=== PATIENT | female | born 1960 | race Caucasian/White ===

== ENCOUNTER 2018-07-06 14:59 | Outpatient (CLI) | payer OTHER | END 2018-07-06 15:00 | disposition home or self-care (01) | LOC: BICMAMMO 14:59 | PROVIDERS: ATTEND Family Medicine | DX: Z12.31 Encounter for screening mammogram for malignant neoplasm of breast (principal); Z80.3 Family history of malignant neoplasm of breast | CPT/HCPCS: 77063; 77067 ==

== ENCOUNTER 2019-07-29 15:54 | Outpatient (CLI) | payer OTHER ==
--- NOTE | 2019-07-29 16:38 | MMO ---
Bilateral MAMMO Bilat Screen [facility]. CLINICAL HISTORY: Patient is 59 years old and is seen for screening. The patient has the following family history of breast cancer: mother, at age 53, malignant (generic). The patient has no personal history of cancer. The patient has a history of right Excisional Biopsy - benign. VIEWS: The views performed were: bilateral craniocaudal with tomosynthesis and bilateral mediolateral oblique with tomosynthesis. FILMS COMPARED: The present examination has been compared to prior imaging studies performed at [facility] on 06/09/2010, 12/19/2016, 12/22/2016 and 07/06/2018. This study has been interpreted with the assistance of computer-aided detection. MAMMOGRAM FINDINGS: The breasts are almost entirely fat. There are no suspicious masses, suspicious calcifications, or new areas of architectural distortion. IMPRESSION: THERE IS NO MAMMOGRAPHIC EVIDENCE OF MALIGNANCY. A ROUTINE FOLLOW-UP MAMMOGRAM IN 1 YEAR IS RECOMMENDED. THE RESULTS OF THIS EXAM WERE SENT TO THE PATIENT. ACR BI-RADS Category 1 - Negative MAMMOGRAPHY NOTE: 1. A negative mammogram report should not delay a biopsy if a dominant of clinically suspicious mass is present. 2. Approximately 10% to 15% of breast cancers are not detected by mammography. 3. Adenosis and dense breasts may obscure an underlying neoplasm. Reported by: MAXWELL MALDONADO MD Electonically Signed: [id number]
== END 2019-07-29 15:55 | disposition home or self-care (01) ==
LOC: BICMAMMO 15:54
PROVIDERS: ATTEND Family Medicine
DX: Z12.31 Encounter for screening mammogram for malignant neoplasm of breast (principal); Z91.89 Other specified personal risk factors, not elsewhere classified; Z80.3 Family history of malignant neoplasm of breast
CPT/HCPCS: 77063; 77067

== ENCOUNTER 2024-10-20 22:55 | Inpatient (IN) | payer BC ==
[~2024-10-20 22:55] MED LIST: Iopamidol-370 76% 500 ML MDV (1 ML CHARGE) ONE
[2024-10-20 23:10] LABS: #Basophils Less than 0.03 10x3/uL (0.0-0.2); %Basophils 0.5 % (0.0-1.0); %Eosinophils 2.1 % (0.0-10.0); %Lymphocytes 35.4 % (21.0-51.0); %Monocytes 12.5 % (0.0-10.0); Hematocrit 45.5 % (36.0-47.0); Hemoglobin 15.5 g/dL (12.0-16.0); Mean Corpuscular HGB CONC 34.1 g/dL (32.0-36.0); Mean Corpuscular Hemoglobin 29.7 pg (27.0-31.0); Mean Corpuscular Volume 87.2 fL (78.0-98.0); Mean Platelet Volume 10.4 fL (7.4-10.4); Platelet Count 152 10x3/uL (130-400); RBC Distribution Width 13.3 % (11.5-14.5); Red Blood Cell (RBC) Count 5.22 mill/uL (4.20-5.40)
[2024-10-20] MEDS ORDERED: dilTIAZem 25 MG/5 ML VIAL ONE (23:22)
[2024-10-20] MEDS ORDERED: Sodium Chloride 0.9% 100 ML ONE (23:23)
[2024-10-20] MEDS ORDERED: dilTIAZem 125 MG/25 ML SDV ONE (23:23)
[2024-10-20 23:43] LABS: ALT (SGPT) 80 U/L (Less than 34); AST (SGOT) 82 U/L (11-34); Albumin 4.5 g/dL (3.1-4.5); Alkaline Phosphatase 86 U/L (40-110); Anion Gap 16 mmol/L (10-20); BUN (Urea Nitrogen) 15 mg/dL (9.8-20.1); Bilirubin, Total 0.6 mg/dL (0.3-1.2); Calc. Creatinine Clearance 0 mL/min (70-130); Calcium 10.2 mg/dL (7.8-10.44); Carbon Dioxide 24 mmol/L (23-31); Chloride 105 mmol/L (98-107); Estimated GFR 62; Globulin 3.4 g/dL (2.4-3.5); Glucose 127 mg/dL (80-115); Potassium 3.6 mmol/L (3.5-5.1); Protein, Total 7.9 g/dL (5.8-8.1); Sodium 141 mmol/L (136-145)
[2024-10-20 23:47] LABS: Troponin I Less than 0.010 ng/mL (< 0.028)
[2024-10-20 23:52] LABS: Magnesium 1.8 mg/dL (1.6-2.6)
[2024-10-20 23:56] LABS: INR-International Normal Ratio 0.8; Prothrombin Time 11.2 sec (12.0-14.7)
[2024-10-20 23:57] LABS: PTT 28.5 sec (22.9-36.1)
[2024-10-21] MEDS ORDERED: Sodium Chloride 0.9% 100 ML ONE (01:30)
[2024-10-21] MEDS ORDERED: Azithromycin 500 MG VIAL ONE (01:30)
[2024-10-21] MEDS ORDERED: cefTRIAXone (ROCEPHIN) 2 GM VIAL ONE (01:30)
[2024-10-21] MEDS ORDERED: Ondansetron PF 4 MG/2 ML Vial IVP PRN (02:34)
[2024-10-21] MEDS ORDERED: Acetaminophen 325 MG TAB PO PRN (02:34)
[2024-10-21] MEDS ORDERED: dilTIAZem 125 MG in Sodium Chloride 0.9% 100 ML IVPB SCH (02:45)
[2024-10-21 02:58] LABS: Free T4 (Free Thyroxine) 0.96 ng/dL (0.70-1.48)
[2024-10-21 04:03] LABS: #Basophils Less than 0.03 10x3/uL (0.0-0.2); %Basophils 0.5 % (0.0-1.0); %Eosinophils 1.8 % (0.0-10.0); %Lymphocytes 29.6 % (21.0-51.0); %Monocytes 10.2 % (0.0-10.0); %Neutrophils 57.6 % (42.0-75.0); Hematocrit 42.6 % (36.0-47.0); Hemoglobin 14.7 g/dL (12.0-16.0); Mean Corpuscular HGB CONC 34.5 g/dL (32.0-36.0); Mean Corpuscular Hemoglobin 29.2 pg (27.0-31.0); Mean Corpuscular Volume 84.7 fL (78.0-98.0); Mean Platelet Volume 10.6 fL (7.4-10.4); Platelet Count 141 10x3/uL (130-400); RBC Distribution Width 13.4 % (11.5-14.5); Red Blood Cell (RBC) Count 5.03 mill/uL (4.20-5.40)
[2024-10-21 04:23] LABS: Troponin I Less than 0.010 ng/mL (< 0.028)
[2024-10-21 04:25] LABS: ALT (SGPT) 64 U/L (Less than 34); AST (SGOT) 62 U/L (11-34); Albumin 3.7 g/dL (3.1-4.5); Alkaline Phosphatase 62 U/L (40-110); Anion Gap 14 mmol/L (10-20); BUN (Urea Nitrogen) 12 mg/dL (9.8-20.1); Bilirubin, Total 0.3 mg/dL (0.3-1.2); Calc. Creatinine Clearance 0 mL/min (70-130); Calcium 8.6 mg/dL (7.8-10.44); Carbon Dioxide 21 mmol/L (23-31); Chloride 109 mmol/L (98-107); Estimated GFR 97; Globulin 2.9 g/dL (2.4-3.5); Glucose 135 mg/dL (80-115); Potassium 3.7 mmol/L (3.5-5.1); Protein, Total 6.6 g/dL (5.8-8.1); Sodium 140 mmol/L (136-145)
[2024-10-21] MEDS: Enoxaparin 80 MG (0.8 mL) SYRINGE SC SCH ×3 (05:30→21:03)
[2024-10-21 06:10] VITALS: BMI 35.6
[2024-10-21 07:24] LABS: Influenza A by NAA DETECTED (NotDetected); Influenza B by NAA Not Detected (NotDetected); SARS-CoV-2 NAA Rapid Test Not Detected (NotDetected)
[2024-10-21 08:31] LABS: Troponin I Less than 0.010 ng/mL (< 0.028)
[2024-10-21] MEDS: Oseltamivir 75 MG CAP PO SCH (09:58)
[2024-10-21 11:28] LABS: Legionella Urinary Ag Negative (Negative)
[2024-10-21 11:29] LABS: Strep pneumo Urine Ag NEGATIVE (NEGATIVE)
[2024-10-21] MEDS: Albuterol 200 PUFF (6.7GM INHALER) INH SCH (13:48)
[2024-10-21] MEDS ORDERED: Artificial Tear Ophth Sol 15 ML BOT EA EYE PRN (18:35)
[2024-10-21] MEDS ORDERED: Metoprolol Tartrate 25 MG TAB PO SCH (21:00)
[2024-10-21] MEDS: Fenofibrate Nanocrystallized 145 MG TAB PO SCH (21:02)
[2024-10-21] MEDS: Rosuvastatin 10 MG TAB PO SCH (21:02)
[2024-10-21] MEDS: Atenolol 25 MG TAB PO SCH (21:03)
[2024-10-21] MEDS: Fish Oil 1,000 MG CAP PO SCH (21:04)
[2024-10-21] MEDS: cefTRIAXone\\ROCEPHIN 1 GM in Sodium Chloride 0.9% 100 ML IVPB SCH (23:53)
[2024-10-22] MEDS: Azithromycin 500 MG in Sodium Chloride 0.9% 250 ML 250 ML IVPB SCH (00:56)
[2024-10-22] MEDS: Mometasone 100 MCG/Formoterol 5 MCG 120 PUFF INHALER INH SCH (08:13)
[2024-10-22] MEDS: CO Q-10 CAPSULE 100 MG PO SCH (08:31)
[2024-10-22] MEDS: Cyanocobalamin (Vitamin B-12) 1,000 MCG TAB PO SCH (08:33)
[2024-10-22] MEDS: Ascorbic Acid 500 mg Chewable Tablet PO SCH (08:33)
[2024-10-22] MEDS: Zinc Sulfate 220 MG CAP PO SCH (08:33)
[2024-10-22] MEDS: Multivitamin W/ Minerals 1 TAB PO SCH (08:33)
[2024-10-22] MEDS: Loratadine 10 MG TAB PO SCH (08:33)
[2024-10-22] MEDS: Pantoprazole 40 MG DR.TAB PO SCH (09:31)
[2024-10-22 15:59] VITALS: BP 119/72; TEMP 98
[2024-10-22] MEDS ORDERED: Apixaban 5 MG TAB PO SCH (21:00)
[2024-10-22] MEDS ORDERED: Cefdinir 300 MG CAP PO SCH (21:00)
== END 2024-10-22 18:30 | disposition home or self-care (01) | DRG 308 ==
LOC: ERS 22:55 → OBS 10-21 02:07
PROVIDERS: ADMIT Student in an Organized Health Care Education/Training Program; ATTEND Internal Medicine
DX: I48.0 Paroxysmal atrial fibrillation (principal); J10.00 Influenza due to other identified influenza virus with unspecified type of pneumonia; E78.00 Pure hypercholesterolemia, unspecified; R74.01 Elevation of levels of liver transaminase levels; E78.5 Hyperlipidemia, unspecified; I25.10 Atherosclerotic heart disease of native coronary artery without angina pectoris; E66.01 Morbid (severe) obesity due to excess calories; K58.0 Irritable bowel syndrome with diarrhea; Z90.49 Acquired absence of other specified parts of digestive tract; Z90.710 Acquired absence of both cervix and uterus; Z88.1 Allergy status to other antibiotic agents; Z88.2 Allergy status to sulfonamides; Z88.8 Allergy status to other drugs, medicaments and biological substances; Z79.899 Other long term (current) drug therapy; Z68.35 Body mass index [BMI] 35.0-35.9, adult
CPT/HCPCS: 36415; 71045; 71275; 80053; 83605; 83735; 83880; 84439; 84443; 84481; 84484; 85025; 85610; 85730; 87040; 87449; 87899; 93005; 93306; 96365; 96374; 96375; 96376; J0456; J0696; J1650; J7050; Q9967